=== PATIENT | male | born 1985 | race African-American/Black ===

== ENCOUNTER 2024-01-21 01:43 | Inpatient (IN) | payer OTHER, SELFPAY ==
[2024-01-20 21:37] VITALS: BP 130/98; BMI 18.5
[2024-01-20 21:54] LABS: % Basophils 1.7 % (0-2); % Eosinophils 12.3 % (0-6); % Lymphocytes 37.7 % (20.5-51.1); % Monocytes 10.9 % (1.7-9.3); % Neutrophils 37.4 % (42.2-75.2); Absolute Basophils 0.1 10^3/uL (0-0.2); Absolute Eosinophils 0.4 10^3/uL (0-0.7); Absolute Lymphocytes 1.3 10^3/uL (1.2-3.4); Absolute Monocytes 0.4 10^3/uL (0.1-0.6); Absolute Neutrophils 1.3 10^3/uL (1.4-6.5); Hematocrit 31.7 % (39.0-52.0); Hemoglobin 11.1 g/dL (13.0-18.0); Mean Corpuscular Hgb 31.8 pg (27.0-31.0); Mean Corpuscular Volume 90.8 fL (80.0-94.0); Mean Platelet Volume 9.6 fL (7.4-10.4); Nucleated Red Blood Cells % 0 % (-); Platelet Count 254 10^3/uL (130-400); Red Blood Cell Count 3.49 10^6/uL (4.70-6.10); White Blood Cell Count 3.5 10^3/uL (4.8-10.8)
[2024-01-20] MEDS: NSS 1000 IV (21:54)
[2024-01-20 22:00] VITALS: BP 125/89
[2024-01-20 22:09] LABS: ALT (SGPT) 72 U/L (0-50); AST (SGOT) 190 U/L (17-59); Albumin 4.1 g/dl (3.5-5.0); Alkaline Phosphatase 72 U/L (38-126); Blood Urea Nitrogen 9 mg/dl (9-20); Calcium 8.6 mg/dl (8.4-10.2); Carbon Dioxide 27 mmol/L (22-30); Chloride 106 mmol/L (98-107); Creatine Phosphokinase 166 U/L (55-170); Estimated Creatinine Clearance 108 ml/min; Glucose 96 mg/dl (70-99); Sodium 147 mmol/L (135-145); Total Bilirubin 0.8 mg/dl (0.2-1.3); Total Protein 6.6 g/dl (6.3-8.2); eGFR > 60.00
--- NOTE | 2024-01-20 22:15 | ED.GENMED ---
History of Present Illness
<Taylor Vazquez PA-C - Last Filed: 01/21/24 00:45>
General
Chief Complaint: Seizure
Source: family and ambulance crew
Time Seen by Provider: 01/20/24 21:36
History of Present Illness
History of Present Illness:
38yoM with a history of alcohol withdrawal seizures presenting via EMS for evaluation after a seizure <1 hour ago. Majority of history is provided by sister at bedside. Sister states that patient was nodding off around 6 PM this evening and
appeared to be foaming at the mouth. She was able to arouse him at that time. She was driving with him less than an hour ago when she noticed that he was very quiet. She looked over and he appeared to be 'fidgeting' with generalized shaking and
frothy oral secretions. The sister checked for a pulse states that she could not find one. She immediately called 911. She removed him from the car and was still unable to find a pulse so started chest compressions. Sister states that she
performed chest compressions for about 3 minutes when the patient woke up and grabbed her arm. When paramedics arrived, patient had pulses. He received 1mg Narcan prehospital with reported improvement. Sister states that patient has a history of
seizures in relation to alcohol withdrawal. He admits to drinking 6-10 shots of alcohol this evening.
Phy Exam
<Taylor Vazquez PA-C - Last Filed: 01/21/24 00:45>
Physical Exam
Physical Exam:
Patient somnolent but arousable by voice. Smells of alcohol.
General Physical Exam
General Skin: warm and dry
General Habitus: normal
General Mental: appears intoxicated
Cardiovascular Exam
Cardiovascular Exam: regular rate/rhythm and no edema
Pulmonary Exam
Pulmonary Exam: lungs clear, no respiratory distress, no crackles and no wheezing
Gastrointestinal Exam
Gastrointestinal Exam: non tender and soft
Neurological Exam
Neurological Exam: other (Able to follow commands in all extremities)
Skin Exam
Skin Exam: warm/dry
Course
<Taylor Vazquez PA-C - Last Filed: 01/21/24 00:45>
Orders/Labs/Results
Orders:
Orders
01/20/24 21:41
CT Head W/o Iv Contrast Urgent
Comment:
Reason For Exam: Seizure
0.9% Sodium Chloride 1000 ml [Nss] 1,000 ml IV BOLUS
01/20/24 21:42
Cardiac Monitoring- Treatment ONCE
01/20/24 21:49
Alcohol Urgent
Complete Blood Count/With Diff Urgent
Comprehensive Metabolic Panel Urgent
Total CK [Creatine Phosphokinase] Urgent
Troponin I Urgent
01/20/24 22:08
Lactate Level [Lactic Acid] Urgent
01/20/24 22:58
Drug Screen, Urine [Urine Drug Abuse Screen] Urgent
Date Specimen was Collected: 01/20/24
Time Specimen was Collected: 21:44
01/20/24 23:15
Haloperidol Lactate [Haldol] 5 mg IM ONCE PRN PRN
01/21/24 00:29
Electrocardiogram (*1) Urgent
Reason for Study: Syncope
EKG- Treatment ONCE
Abnormal Lab Results
01/20/24
21:49
WBC 3.5 L 10^3/uL
(4.8-10.8)
RBC 3.49 L 10^6/uL
(4.70-6.10)
Hgb 11.1 L g/dL
(13.0-18.0)
Hct 31.7 L %
(39.0-52.0)
MCH 31.8 H pg
(27.0-31.0)
Absolute Neuts (auto) 1.3 L 10^3/uL
(1.4-6.5)
Neutrophils % 37.4 L %
(42.2-75.2)
Monocytes % 10.9 H %
(1.7-9.3)
Eosinophils % 12.3 H %
(0-6)
Sodium 147 H mmol/L
(135-145)
AST 190 H U/L
(17-59)
ALT 72 H U/L
(0-50)
Alcohol, Quantitative 502 H* mg/dl
01/20/24 21:49
01/20/24 21:49
Vital Signs
Initial and Last Documented VS:
Initial Vital Signs
Temp Pulse Resp BP Pulse Ox
97.6 F 101 16 130/98 99
01/20/24 21:37 01/20/24 21:37 01/20/24 21:37 01/20/24 21:37 01/20/24 21:37
Last Documented Vital Signs
Temp Pulse Resp BP Pulse Ox
97.6 F 89 18 132/75 99
01/20/24 21:37 01/20/24 23:59 01/20/24 23:59 01/21/24 00:00 01/21/24 00:01
<Jessica Booker MD - Last Filed: 01/20/24 22:22>
Orders/Labs/Results
Orders:
Orders
01/20/24 21:41
CT Head W/o Iv Contrast Urgent
Comment:
Reason For Exam: Seizure
0.9% Sodium Chloride 1000 ml [Nss] 1,000 ml IV BOLUS
01/20/24 21:42
Cardiac Monitoring- Treatment ONCE
01/20/24 21:49
Alcohol Urgent
Complete Blood Count/With Diff Urgent
Comprehensive Metabolic Panel Urgent
Total CK [Creatine Phosphokinase] Urgent
Troponin I Urgent
01/20/24 22:08
Lactate Level [Lactic Acid] Urgent
01/20/24 22:58
Drug Screen, Urine [Urine Drug Abuse Screen] Urgent
Date Specimen was Collected: 01/20/24
Time Specimen was Collected: 21:44
01/20/24 23:15
Haloperidol Lactate [Haldol] 5 mg IM ONCE PRN PRN
01/21/24 00:29
Electrocardiogram (*1) Urgent
Reason for Study: Syncope
EKG- Treatment ONCE
Abnormal Lab Results
01/20/24
21:49
WBC 3.5 L 10^3/uL
(4.8-10.8)
RBC 3.49 L 10^6/uL
(4.70-6.10)
Hgb 11.1 L g/dL
(13.0-18.0)
Hct 31.7 L %
(39.0-52.0)
MCH 31.8 H pg
(27.0-31.0)
Absolute Neuts (auto) 1.3 L 10^3/uL
(1.4-6.5)
Neutrophils % 37.4 L %
(42.2-75.2)
Monocytes % 10.9 H %
(1.7-9.3)
Eosinophils % 12.3 H %
(0-6)
Sodium 147 H mmol/L
(135-145)
AST 190 H U/L
(17-59)
ALT 72 H U/L
(0-50)
Alcohol, Quantitative 502 H* mg/dl
01/20/24 21:49
01/20/24 21:49
Vital Signs
Initial and Last Documented VS:
Initial Vital Signs
Temp Pulse Resp BP Pulse Ox
97.6 F 101 16 130/98 99
01/20/24 21:37 01/20/24 21:37 01/20/24 21:37 01/20/24 21:37 01/20/24 21:37
Last Documented Vital Signs
Temp Pulse Resp BP Pulse Ox
97.6 F 89 18 132/75 99
01/20/24 21:37 01/20/24 23:59 01/20/24 23:59 01/21/24 00:00 01/21/24 00:01
<Taylor Vazquez PA-C - Last Filed: 01/21/24 00:45>
MDM/Problems Addressed
Differential Diagnosis Includes:
38yoM here after a possible seizure. Family reports an episode of generalized shaking and foaming at the mouth. Sister could not find a pulse so started CPR. Chest compressions performed for 3 minutes before patient woke up. He received Narcan
prehospital with improvement. He is somnolent on arrival but arousable. He smells of alcohol and admits to drinking multiple shots today. Vitals stable. He is able to move all extremities equally. Differential diagnosis includes but is not limited
to: withdrawal seizure, alcohol intoxication, narcotic overdose
Initial ED plan: Check cardiac labs, CK, lactate, ETOH, UDS, EKG, and CT head. IV fluid bolus.
<Taylor Vazquez PA-C - Last Filed: 01/21/24 00:45>
*Critical Care Note
Total Time (30-74mins, 75-104mins- exclusive of procedures): Not Applicable
<Taylor Vazquez PA-C - Last Filed: 01/21/24 00:45>
Update Note
Update Note:
ETOH 502. AST 190 and ALT 72 consistent with alcohol abuse. Remainder of labs unremarkable including normal lactate. CT head is negative for acute findings. Will admit for further evaluation and management.
ED Attending Note
<Taylor Vazquez PA-C - Last Filed: 01/21/24 00:45>
-
Portions of this chart may have been created with voice recognition software.� Occasional wrong word or��sound alike� substitutions may have occurred due to the inherent limitations of voice recognition software.
<Jessica Booker MD - Last Filed: 01/20/24 22:22>
ED Attending Note
Patient seen and examined by attending physician: Yes
I performed the substantive portion of visit, reviewed & personally made and approve the management plan that is documented in note by myself or DYANA.: Yes
ED Attending Note:
38-year-old male with history of seizures presenting to the emergency department with a possible seizure. Patient's family numbers are at bedside provide all the history. States that today he was sitting when she noticed that he was foaming at his
mouth. She did not think of anything so he started driving to come to [place]. While they were driving he notes that he was more somnolent than usual. Everybody got the car at the cousin's house but the patient remained in the car. He then
started having a seizure. Patient sister checked for quite possible and unable to feel it. She took him out of the car called 911 and started CPR. She did CPR for about 3 minutes. Medics got there. Per EMS he did have a faint pulse. Narcan was
given with some response. Patient's family does admit to alcohol use tonight but unclear of any other drug use. They are unsure what seizure medications he is on. Family did notice urinary incontinence.
Vitals are unremarkable and exam shows a man who is sleepy but arousable to painful stimuli. Pupils are dilated but equal and reactive. He does have a smell of alcohol. No signs of traumatic injuries. Abdomen is benign. On my exam he does wake
up to painful stimuli sit up straight and open his eyes and goes back to sleep.
Patient is a 38-year-old male with history of seizures presented to the emergency department with a seizure. Vitals unremarkable and exam shows a man who is currently postictal. Differential consists of alcohol versus opioid overdose, seizure,
intoxication, metabolic derangement. No signs of traumatic injury. Will check blood work including a lactic acid and tox lab. Will obtain CT scan of the head. Patient will likely need admission.
Discharge Plan
Departure
Patient Disposition: Admit
Date of Disposition: 01/21/24
Time of Disposition: 00:35
Presentation/result/management discussed w/ accepting MD/DO: Hospitalist
Discharge Problem:
Seizure, Alcohol intoxication
Referrals:
NONE,* [Family Provider] -
Interventions
Interventions:
*Risk Screen - Suicide Last Done: 01/20/24 21:37
*General Assessment Last Done: 01/20/24 21:37
*Neglect/Abuse Screening Last Done: 01/20/24 21:37
*ED COVID-19 Vaccine History Last Done: 01/20/24 21:50
ED- Cardiac Assessment Last Done: 01/20/24 21:50
ED- Neurological Assessment Last Done: 01/20/24 21:50
ED- Pulmonary Assessment Last Done: 01/20/24 21:50
Discharge Date and Time
Print Language: CHINESE
[2024-01-20 22:20] LABS: Troponin I < 0.012 ng/ml
[2024-01-20 22:21] LABS: Alcohol 502 mg/dl
[2024-01-20 22:28] LABS: Lactic Acid 1.6 mmol/L (0.7-2.0)
[2024-01-20 23:00] VITALS: BP 136/97
[2024-01-20 23:25] LABS: Amphetamines Negative (Negative); Barbiturates Negative (Negative); Benzodiazepines Negative (Negative); Buprenorphine Negative (Negative); Cocaine Negative (Negative); Marijuana Negative (Negative); Methadone Negative (Negative); Methamphetamines Negative (Negative); Opiates Negative (Negative); Phencyclidine Negative (Negative); Tricyclic Antidepressants Negative (Negative)
[2024-01-21] VITALS: BP 132/75
[2024-01-21 01:00] VITALS: BP 115/74
--- NOTE | 2024-01-21 01:13 | HPS.HSE ---
Family Physician
-
Family Physician: * NONE
Chief Complaint
-
Unresponsive Episode
History of Present Illness
Patient is a 38y M with PMH significant for alcohol use disorder who presents to ED for evaluation of unresponsive episode. Patient states that he is here for 'overindulging'. Sister states that she was driving with the patient this evening
when he seemed poorly responsive. Around 6 PM he was falling asleep and 'foaming at the mouth'. She was able to rouse him at that time. Around 8 PM she noted that he seemed very quiet. She looked over and noted that the patient appeared to be
tremulous / 'fidgety' and again had frothy oral secretions. Sister pulled the car over. She reportedly could not appreciate a pulse. She removed the patient from the car and started CPR. She states that she provided chest compressions for about
3 minutes at which point the patient became responsive and grabbed at her arms.
EMS arrived and patient was brought to the ED for further evaluation.
He had pulses when initially evaluated by EMS. He was given Narcan in the field with perhaps some improvement in his mentation.
At the time of my exam patient is sleeping but does wake to noxious stimuli. He tells me that he drinks 'a lot' but cannot quantify this further.
He smokes marijuana occasionally but denies any other drug / substance use.
Patient denies any history of hospitalization related to alcohol use. Sister had stated that he had suffered withdrawal seizures in the past.
Medical History
Past Medical History
Past Medical History: Reports Other
Additional Past Medical History:
Alcohol Use Disorder
Past Surgical History: Reports Other
Additional Past Surgical History:
Hernia Repair
Social History
Tobacco: Non-smoker
Alcohol: Binge drinker
Drug: Marijuana
Family History
Family History: Not pertinent
Allergies / Home Medications
Allergies reflects when Allergies were last updated in [facility].
Home Medications with original date entered in [facility]
Allergy/Medication List:
Allergies
Allergy/AdvReac Type Severity Reaction Status Date / Time
No Known Allergies Allergy Unverified 01/20/24 21:41
Home Medications
No Meds [No Current Medications] 01/21/24
Review of Systems
-
History Source: Patient
A 12 point ROS was completed and negative except as noted: Yes
Constitutional: Denies Fever or Chills
Respiratory: Denies Cough or Trouble Breathing
Cardiac: Denies Chest Pain or Palpitations
Abdomen/GI: Denies Abdominal Pain, Nausea or Vomiting
Musculoskeletal: Denies Joint Pain or Edema
Neurological: Denies Dizzy or Headache
Physical Exam
Vital Signs
Vital Signs
Temp Pulse Resp BP Pulse Ox
97.6 F 89 18 132/75 99
01/20/24 21:37 01/20/24 23:59 01/20/24 23:59 01/21/24 00:00 01/21/24 00:01
Physical Exam
General: Other (38y M sleeping comfortably. Wakes no noxious stimuli and then does answer questions / follow commands appropriately.)
HEENT: Moist mucous membranes
Respiratory: Clear; No Wheezes, Rales or Rhonchi
Cardiac: S1/S2 and Regular Rhythm; No Murmur
GI: Soft, Non Tender, Non Distended and Normal Bowel Sounds
Musculoskeletal: No Clubbing, No Cyanosis and No Edema
Neuro: Other (Somnolent but arousable. No focal deficits.)
Laboratory Results
-
01/20/24 21:49
01/20/24 21:49
Laboratory Results
Lactic Acid 1.6 mmol/L (0.7-2.0) 01/20/24 22:08
Total Bilirubin 0.8 mg/dl (0.2-1.3) 01/20/24 21:49
AST 190 U/L (17-59) H 01/20/24 21:49
ALT 72 U/L (0-50) H 01/20/24 21:49
Alkaline Phosphatase 72 U/L (38-126) 01/20/24 21:49
Troponin I < 0.012 ng/ml 01/20/24 21:49
Impression/Plan
-
A/P: Patient is a 38y M with PMH significant for alcohol use disorder who presents to ED for evaluation of unresponsive episode this evening.
Unresponsive Episode
Alcohol Intoxication / Potential Withdrawal
Questionable Seizure Activity
- Admit for further evaluation and treatment.
- EtOH level > 500 and patient appears intoxicated on arrival.
- Cardiac arrest or seizure seems somewhat unlikely given normal labs, lactate, trop, etc.
- Patient arousable at present and offers no complaints.
- Monitor overnight.
- IVF support.
- MSAS protocol / follow for withdrawal symptoms.
- Phenobarb taper given reported history of withdrawal seizures.
- Follow labs / lytes.
- Monitor for any new / recurrent symptoms.
- UDS is negative for any other substances.
DVT Prophylaxis: SCDs
Code Status: Full
[2024-01-21 02:00] VITALS: BP 108/71
[2024-01-21 02:10] VITALS: BMI 17.6
[2024-01-21 02:15] VITALS: BP 122/92; BMI 17.6
[2024-01-21] MEDS: LR 1000 IV (02:59)
--- NOTE | 2024-01-21 04:02 | PTCARENOTE ---
Pt arrived to IMU from ED. Report received from THANH Yeh via tube. Pt somnolent when arrived on stretcher. During admission assessment pt woke up AAOx3, cooperative, and answered all questions. Assessment completed. During admission, pt asked why
he was here and was requesting to leave. I explained to him why he was here, that we needed to monitor him, and treatment we were providing for him. After having a lengthy conversation about his reason and need for hospitalization, he still
requested to go home. I explained to him what AMA was and he wanted this. Reached out to GALINA Do and she came up to bedside and spoke with pt about the risks. Pt signed AMA form. Pt stated that an [employer] would be picking him up so security called to
escort him. Security came to bedside and pt walked off the floor with all of his belongings.
--- NOTE | 2024-01-21 04:02 | W.PN.UPDATE ---
Update Note
Progress Note Update
Reported by the nursing staff that the patient wants to leave AMA.
-Spoke to [place]/ sister listed on the chart and the 2nd sister who was present during admission joined the phone call conversation as well. This ad writer explained the situation as patient currently alert and oriented x3 and would like to leave AMA.
The sister who was present during admission time was not happy about it, this ad writer asked for the sister help and to talk to the patient but she refused. I explained that patient is AAOX3 able to walk steady in the room and will not able to hold
him against his wishes. The sister response was 'whatever'
- AMA Risk was discussed with the patient while RN in the room, patient decided to leave and signed AMA form.
- [place] /Brother made aware with with the situation as well.
== END 2024-01-21 04:46 | disposition left against medical advice (07) | DRG 894 ==
LOC: IMU 01:43
PROVIDERS: Physician Assistant; ADMITTING PHYSICIAN Hospitalist; EMERGENCY PHYSICIAN Student in an Organized Health Care Education/Training Program
DX: F10.129 Alcohol abuse with intoxication, unspecified (principal); Z53.29 Procedure and treatment not carried out because of patient's decision for other reasons; R32 Unspecified urinary incontinence; R56.9 Unspecified convulsions; Y90.8 Blood alcohol level of 240 mg/100 ml or more
CPT/HCPCS: 70450; 80053; 80306; 82077; 82550; 83605; 84484; 85025; 93005; 96360; 96372; 99285